=== PATIENT | male | born 2000 | race Two or more races ===

== ENCOUNTER 2022-06-29 23:57 | Emergency (ER) | payer OTHER ==
[~2022-06-29] VITALS: Ht 160 cm; Wt 86.4 kg
[2022-06-30 00:05] VITALS: BP 139/83
[2022-06-30] MEDS ORDERED: ONDA-104 PO (00:07)
[2022-06-30] MEDS ORDERED: FAMO20 PO (00:07)
== END 2022-06-30 02:55 | disposition left against medical advice (07) ==
LOC: EMS 23:57
DX: Z53.21 Procedure and treatment not carried out due to patient leaving prior to being seen by health care provider (principal)
CPT/HCPCS: 99281; Z7502